=== PATIENT | female | born 1970 | race Caucasian/White ===

== ENCOUNTER 2025-05-13 20:36 | Emergency (ER) | payer SELFPAY ==
[2025-05-13 20:37] VITALS: BP 164/101
--- NOTE | 2025-05-13 20:49 | EDRN ---
when patient was brought back to ED room 1 w/ her daughter, this RN asked patient to get undressed into hospital scrubs per our hospital policy. pt states she does not want to get changed and she is 'just here to talk to someone.' pt reports the
police were at her house earlier and they told her to come here. pt daughter at the bedside along w/ ED staff 1:[address] curtain remains open. crisis consult placed. nurse discharge planner Joe made aware of situation.
--- NOTE | 2025-05-13 23:05 | ED.GENMED ---
History of Present Illness
General
Chief Complaint: Crisis Evaluation
Source: patient and family
Exam Limitations: none
Time Seen by Provider: 05/13/25 22:07
Nursing documentation reviewed up to this point in time: agreed with
History of Present Illness
History of Present Illness:
Note:
CHIEF COMPLAINT(S)
Stress
HISTORY OF PRESENT ILLNESS
The patient is a 57-year-old female presenting with significant stress. 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 The patient has been
actively interviewing for jobs, adding to her stress levels. Additionally, the patient disclosed being suicidal and experiencing increased stress since the passing of his last year. He has no history of drug or alcohol use and has not
attempted to harm herself. The patient expressed a desire to be comfortable, indicating she feels 'tired.'
The patient was previously on medication for hypertension, which was under control during his last doctors visit. She noted that her blood pressure was elevated today, possibly due to stress. The patient requested crackers and soraya izabel, indicating
she had not eaten before the encounter.
SOCIAL DETERMINANTS AFFECTING HEALTH
The patient is experiencing significant life stressors related to employment and the passing of her , which contribute to her current mental health state.
MEDICATIONS
The patient was previously on medication for hypertension but did not provide the specific name of the medication. She mentioned his blood pressure was under control at her last doctors visit.
PHYSICAL EXAM
- Nursing notes reviewed and vital signs reviewed.
PLAN
The patient will be medically cleared to receive crisis intervention. After the intervention, a telepsychiatrist will evaluate the patient. The patient will remain in the facility until medically cleared and safe to leave.
DIFFERENTIAL DIAGNOSIS
The Differential Diagnosis includes, in no particular order and is not limited to:
1. Major depressive disorder
2. Adjustment disorder with anxiety
3. Post-traumatic stress disorder (related to the loss of the spouse)
4. Generalized anxiety disorder
5. Substance-induced mood disorder (if substance use were to be undetected)
6. Bereavement-related depression
7. Hypertension secondary to stress
8. Acute stress reaction
9. Bipolar disorder
10. Panic disorder
Disposition:
SUMMARY OF ENCOUNTER
A 57-year-old female presented to the emergency department with increased stress and suicidal ideation. She was accompanied by her supportive daughter. The patient was evaluated by crisis intervention staff and was determined to be suitable for
discharge. She was able to contract for her safety and demonstrated no active plan for self-harm. 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
stress. Resources and follow-up plans were provided to support her post-discharge.
DISPOSITION
Discharge
PLAN
The patient will be discharged with crisis intervention resources and follow-up support to ensure her safety and ongoing mental health care.
FOLLOW-UP INSTRUCTIONS
The patient was given resources for follow-up care and counseling to address her stress and mental health needs.
MEDICAL DECISION MAKING
- Number and Complexity of Problems Addressed: Chronic conditions affecting care including stress and suicidal ideation. Differential diagnoses considered include major depressive disorder, adjustment disorder with anxiety, post-traumatic stress
disorder (related to the loss of spouse), generalized anxiety disorder, bereavement-related depression, and acute stress reaction.
- Data:
Category 2: Clinical information obtained from an independent historian, as the patients daughter was present and supportive during the visit.
- Risk: Care significantly affected by social determinants of health, including employment-related stress and the passing of her spouse.
DIAGNOSIS
- R45.851 Suicidal ideation
- F43.8 Other reactions to severe stress
Phy Exam
General Physical Exam
General Presentation: well appearing and no apparent distress
General Skin: warm and dry
General Habitus: normal
General Mental: alert
General Hydration: appears well hydrated
ENT Exam
ENT Exam: EOMI, pharynx normal, neck supple and normocephalic
Eye Exam
Eye Exam: PERRL, cornea clear and conjunctiva normal
Cardiovascular Exam
Cardiovascular Exam: regular rate/rhythm, no edema, no murmur and normal peripheral pulses
Pulmonary Exam
Pulmonary Exam: lungs clear, no respiratory distress, no rales, no crackles, no rhonchi, no stridor, no wheezing and no cough
Gastrointestinal Exam
Gastrointestinal Exam: normal bowel sounds, non tender, soft, no organomegaly, no pulsatile mass and non distended
Neurological Exam
Neurological Exam: alert, oriented x3, no motor deficits and speech normal
Musculoskeletal Exam
Musculoskeletal Exam: full ROM and no edema
Skin Exam
Skin Exam: normal color, warm/dry, no rash and no petechia
Psychiatric Exam
Psychiatric Exam: normal mood/affect and depressed
Course
Orders/Labs/Results
Orders:
Orders
05/13/25 20:42
Crisis Consult Urgent
Reason for Consult: SI
Vital Signs
Initial and Last Documented VS:
Initial Vital Signs
Temp Pulse Resp BP Pulse Ox
98.4 F 87 20 164/101 96
05/13/25 20:37 05/13/25 20:37 05/13/25 20:37 05/13/25 20:37 05/13/25 20:37
Last Documented Vital Signs
Temp Pulse Resp BP Pulse Ox
98.4 F 87 20 164/101 96
05/13/25 20:37 05/13/25 20:37 05/13/25 20:37 05/13/25 20:37 05/13/25 20:37
*Pulse Oximetry
SaO2: 96
Oxygen Mode of Delivery: Room air
Patient hypoxic: no
*Critical Care Note
Total Time (30-74mins, 75-104mins- exclusive of procedures): Not Applicable
ED Attending Note
-
Portions of this chart may have been created with voice recognition software.� Occasional wrong word or��sound alike� substitutions may have occurred due to the inherent limitations of voice recognition software.
Discharge Plan
Departure
Patient Disposition: Home (Routine Discharge)
Date of Disposition: 05/13/25
Time of Disposition: 23:05
Patient with high blood pressure during this ER visit?: Yes
Discharge Problem:
Stress
Instructions: Depression, Adult (DC), Anxiety, Adult (DC), Suicide prevention, BLOOD PRESSURE
Referrals:
Clara Todd DO [Family Provider, Family Practice]
Jayda Clifford [Active, Psychiatry]
Activity Restrictions/Additional Instructions:
Thank You for choosing [facility].
It was a pleasure meeting you and taking part in your care. We hope for your continued healing and wellness.
Please read discharge instructions in their entirety. However, they are for general education and may not describe your exact diagnosis at discharge. Information on your ER visit and medical conditions were discussed with you along with appropriate
follow up information...
If indicated, please take your medications as instructed and indicated on discharge paperwork.
Please schedule a follow up appointment as directed. Call to schedule an appointment
Please return to the emergency department with ANY change in, persisting, or worsening of symptoms. If any of your symptoms do not improve, or persist, or become more severe within 6-12 hours, please return to the emergency department for further
care.
Please return to the emergency department if you develop a headache, neck pain/stiffness, fever greater than 100.4F, chest pain, shortness of breath, persistent nausea, vomiting, slurred speech, difficulty walking, numbness/tingling, weakness, signs
of infection or any other symptoms that are worrisome to you.
If you have any questions or concerns please do not hesitate to call the Hospital at or E-mail me directly at
Interventions
Interventions:
*Risk Screen - Suicide Last Done: 05/13/25 20:39
*General Assessment Last Done: 05/13/25 20:39
*Neglect/Abuse Screening Last Done: 05/13/25 20:39
*ED COVID-19 Vaccine History Last Done: 05/13/25 20:39
Discharge Date and Time
Print Language: SWEDISH
== END 2025-05-13 23:00 | disposition home or self-care (01) ==
LOC: EMR 20:36
PROVIDERS: EMERGENCY PHYSICIAN Student in an Organized Health Care Education/Training Program; FAMILY PHYSICIAN Family Medicine
DX: F43.89 Other reactions to severe stress (principal); R45.851 Suicidal ideations; I10 Essential (primary) hypertension; Z56.6 Other physical and mental strain related to work; Z63.4 Disappearance and death of family member
CPT/HCPCS: 99283